=== PATIENT | female | born 1990 | race Caucasian/White ===

== ENCOUNTER 2020-10-09 02:26 | Outpatient (CLI) | payer BC, OTHER, SELFPAY ==
[2020-10-09 22:37] LABS: Thyroperoxidase Antibody 36 U/mL (<=60)
[2020-10-09 22:40] LABS: Thyroglobulin Antibody 296 U/mL (<=60)
[2020-10-11 10:37] LABS: Aldolase 4.4 U/L (<7.7)
== END 2020-10-09 02:46 ==
PROVIDERS: PCP Internal Medicine Rheumatology; Visit Provider Internal Medicine Rheumatology
DX: M79.18 Myalgia, other site (principal); R76.8 Other specified abnormal immunological findings in serum; R53.82 Chronic fatigue, unspecified; R79.89 Other specified abnormal findings of blood chemistry
CPT/HCPCS: 36415; 82085; 86376; 86800

== ENCOUNTER 2022-07-28 17:11 | Emergency (ER) | payer BC, MEDICARE, SELFPAY ==
[2022-07-28 17:22] VITALS: BP 112/78; PULSE 79; RESP 20; TEMP 37.1; O2SAT 97
--- NOTE | 2022-07-28 18:00 | DI.CT_ITS ---
Exam(s) CT ABDOMEN PELVIS WO EXAM: CT ABDOMEN PELVIS WO CLINICAL HISTORY: Right Flank pain, Hematuria, R/O Kidney stone. TECHNIQUE: Imaging Protocol: Axial computed tomography images with coronal and sagittal reformatted images were created and reviewed CONTRAST MATERIAL: Intravenous: none Oral: None COMPARISON: No exams were available for comparison FINDINGS: VISUALIZED LUNG BASES: No nodules nor pleural effusions evident. ABDOMEN: There is no ascites. LIVER: There are no obvious focal hepatic lesions evident of this noninfused study. GALLBLADDER/BILIARY: Gallbladder is surgically absent. CBD is not dilated. PANCREAS: No evidence of pancreatic mass nor dilatation of the pancreatic duct. SPLEEN: Spleen is not enlarged. No obvious intrasplenic lesions. ADRENALS: There are no significant adrenal masses. KIDNEYS:No cysts evident. No solid renal masses. No calculi nor hydronephrosis. . ABDOMINAL AORTA: Abdominal aorta is not enlarged. LYMPH NODES: There is no retroperitoneal nor paraaortic adenopathy. ABDOMINAL WALL: No evidence of significant anterior abdominal wall nor inguinal hernia. GI: Abundant fecal material is noted throughout the entire colon,. No evidence of small-bowel obstruction. PELVIS: LYMPH NODES: There is no intrapelvic nor inguinal adenopathy. GI: No evidence of appendicitis.No evidence of sigmoid diverticulitis. URINARY BLADDER: Moderately distended. Masses. No calculi. REPRODUCTIVE: Uterus and ovaries appear unremarkable-age appropriate. OSSEOUS: No significant osseous lesions. IMPRESSION: 1. Abundant fecal material noted throughout the colon and correlation any clinical history of constip ation recommended. No evidence of small-bowel obstruction. 2. Mildly distended urinary bladder noted. Does not contain obvious calculi nor masses. 3. RADIATION DOSE DELIVERED: Total DLP DATA REPOSITORY: All CT scans at this facility are submitted to the National Radiology Data Registry (NRDR) Dose Index Registry (DIR) with the [employer] ([employer]). RADIATION OPTIMIZATION: All CT scans at this facility use at least one of these dose optimization te chniques: automated exposure control; mA and/or kV adjustment per patient size (includes targeted exa ms where dose is matched to clinical indication); or iterative reconstruction.
--- NOTE | 2022-07-28 18:12 | ED.GENADUL_ITS ---
Discharge Plan Disposition Patient Disposition: HOME Condition: Stable Discharge Details Clinical Impression: Constipation, UTI (urinary tract infection) Primary Care Provider: [facility] Provider: Suyapa Chirinos Home Meds and New Rx's Prescriptions: Continued methocarbamol 500 mg Tablet 500 mg PO PRN PRN gabapentin 600 mg Tablet 600 mg PO TID metoprolol tartrate 50 mg Tablet 50 mg PO BID diazepam 10 mg Tablet 10 mg PO TID dicyclomine 10 mg Capsule 20 mg PO TID gabapentin 400 mg Tablet 400 mg PO TID Discharge Instructions Instructions: Constipation (ED), Urinary Tract Infection in Women (ED) Additional Instructions: You may try a fleet enema which you can obtain over the counter, your urine showed a possibly a UTI. You were given antibiotics here in the department for that which should treat it. However if your culture comes back and you need to be placed on a different antibiotic we will call you. I do feel that your pain is caused from the constipation. Follow up with primary care provider in 3-5 days. Return to ED sooner if any worsening or concerns. Increase oral fluids. Please take Tylenol or Ibuprofen with food every 4-6 hours as needed for pain and swelling. You may drink the rest of the magnesium citrate at home. Medical Decision Making 32-year-old female presents to the ER with chief complaint of right flank pain which radiates around to her right side of her abdomen which began Thursday. She was seen in urgent care prior to arrival and they referred her here. CBC shows no leukocytosis, CMP largely within normal limits BUN 10 creatinine 1.1 GFR 69, lipase within normal limits. I do suspect that patient's pain is being caused from constipation we will give a soapsuds enema, and get patient to relieve her bladder. Is a small hard balls after enema. 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 She does have a history of brain tumors, will give 2 mg of Valium here mag citrate half year and half at home. And will consider sending home a Fleet enema. Will give Fosphomycin 3 gm here for positive nitrites in urine. This text was generated using [employer] system, please disregard any oddities of phrase or misspellings. Imaging Data Radiologic Study: Imaging: CT Scan Radiologist's impression: IMPRESSION: 1. Large volume colonic stool distributed throughout the colon suggesting constipation. 2. Mildly excessive small bowel fluid content may indicate changes of stasis or ileus, versus mild gastroenteritis/developing diarrheal state. No evidence of bowel obstruction or perforation. 3. No hydronephrosis or hydroureter. No urolithiasis. Question slight right-sided periureteral stranding which may represent changes of a recently passed stone versus mild changes of UTI. 4. Moderately distended urinary bladder, estimated volume 550 mL. Thank you for allowing us to participate in the care of your patient Lab Data Lab results reviewed: Yes I reviewed the patient's lab results. Labs: 07/28/22 21:10 Urine - Reflex from Ua Urine Culture - Pending Laboratory Tests Range/Units 07/28/22 07/28/22 07/28/22 18:50 18:50 21:10 WBC (4.4-10.8) 10^3/uL 9.47 RBC (3.93-5.22) 10^6/uL 5.11 Hgb (11.2-15.7) g/dL 14.8 Hct (36.0-46.0) % 45.5 MCV (80-95) fL 89 MCH (27.0-33.0) pg 29.0 MCHC (32.0-36.0) % 32.5 RDW (11.7-14.6) % 12.6 Plt Count (130-400) 10^3/uL 282 MPV (8.0-11.0) fL 10.1 Immature Gran % 0.2 Neutrophils % 57.5 Lymphocytes % 32.5 Monocytes % 6.8 Eosinophils % 2.3 Basophils % 0.7 Nucleated RBC % (0.0-0.3) % 0.0 Absolute Neutrophils (1.2-6.7) 10^3/uL 5.44 Absolute Lymphocytes (1.2-3.4) 10^3/uL 3.08 Absolute Monocytes (0.1-0.8) 10^3/uL 0.64 Absolute Eosinophils (0.0-0.7) 10^3/uL 0.22 Absolute Basophils (0.0-0.2) 10^3/uL 0.07 Sodium (136-145) mmol/L 141 Potassium (3.5-5.1) mmol/L 4.7 Chloride (98-107) mmol/L 106 Carbon Dioxide (21.0-32.0) mmol/L 29.9 Anion Gap (3-11) mmol/L 5.1 BUN (7-18) mg/dL 10 Creatinine (0.55-1.02) mg/dL 1.1 H Est GFR (CKD-EPI 2020) (mL/min/1.73m2) 69.32 Glucose (74-106) mg/dL 94 Calcium (8.5-10.1) mg/dL 9.6 Magnesium (1.8-2.4) mg/dL 2.2 Total Bilirubin (0.2-1.0) mg/dL 0.4 AST (15-37) U/L 25 ALT (14-59) U/L 25 Alkaline Phosphatase (46-116) U/L 87 Total Protein (6.4-8.2) g/dL 8.5 H Albumin (3.4-5.0) g/dL 4.7 Lipase (73-393) U/L 79 Urine Color (Yellow) Yellow Urine Clarity (Clear) Clear Urine pH (5-8) 7.0 Ur Specific [place] (1.005-1.025) 1.015 Urine Protein (Negative) mg/dL Negative Urine Ketones (Negative) mg/dL Negative Urine Blood (Negative) Negative Urine Nitrite (Negative) Positive H Urine Bilirubin (Negative) Negative Urine Urobilinogen (Up TO 0.2) EU/dL 0.2 Ur Leukocyte Esterase (Negative) Negative Urine RBC (0-2) HPF 0-2 Urine WBC (0-5) HPF 3-5 Ur Epithelial Cells (Negative) HPF Few Urine Crystals (Negative) HPF Negative Urine Bacteria (Negative) HPF Few Urine Casts (Negative) LPF Negative Urine Mucus (Negative) Negative Ur Culture Indicated? Yes Urine Glucose (Negative) mg/dL Negative HPI General Mode of arrival: wheelchair . Date/Time Provider Initiated Documentation: 07/28/22 17:30 . Limitations to Documentation: no limitations and physical limitation . Information obtained by: patient, RN notes reviewed and old records reviewed . HPI Narrative: 32-year-old female presents to the ER with chief complaint of right flank pain which radiates around to her right side of her abdomen which began Thursday. She was seen in urgent care prior to arrival and they referred her here. They did obtain a urine sample and noted 3+ blood. Related Data Home Medications Medication Instructions Recorded Confirmed diazepam 10 mg tablet 10 mg PO TID 10/31/22 10/31/22 dicyclomine 10 mg capsule 20 mg PO TID 07/28/22 07/28/22 gabapentin 400 mg tablet 400 mg PO TID 07/28/22 07/28/22 gabapentin 600 mg tablet 600 mg PO TID 07/28/22 07/28/22 methocarbamol 500 mg tablet 500 mg PO PRN PRN 07/28/22 07/28/22 metoprolol tartrate 50 mg tablet 50 mg PO BID 07/28/22 07/28/22 Allergies Allergy/AdvReac Type Severity Reaction Status Date / Time aspirin Allergy Anaphylaxis Unverified 07/28/22 22:17 NSAIDS (Non-Steroidal Allergy Anaphylaxis Unverified 07/28/22 22:17 Anti-Inflamma Penicillins AdvReac Unverified 07/28/22 22:18 General Stated Complaint: Abd Prob ALIS: 3 Review of Systems All systems reviewed & are unremarkable except as noted in HPI and below Cardiovascular Cardiovascular: Denies chest pain and Denies dyspnea Respiratory Respiratory: Denies cough and Denies dyspnea Gastrointestinal Gastrointestinal: Reports abdominal pain, Denies hematochezia, Reports constipation, Reports nausea and Denies vomiting Genitourinary Genitourinary: Denies dysuria PFSH All Active Problems (Updated 07/28/22 @ 22:26 by Suyapa Chirinos NP) Constipation (Acute) UTI (urinary tract infection) (Acute) Social History Smoking/Tobacco Use Status: Never Smoking risk assessment performed?: Yes Alcohol Intake: never Drug use: Never Substance use type: does not use Do you feel safe at home: Yes Do you feel safe in your relationship?: Yes Exam Narrative Exam Narrative: Constitutional: Alert and oriented x3. Appears stated age. Normal body habitus. Head: Normocephalic, no trauma. Eyes: Pupils PERRL, Red reflex noted, EOM's intact. Eyelids symmetrical without lesions, discharge, or swelling. ENT: Bilateral TM's WNL, External ear normal to inspection, no mastoid TTP, swelling, or erythema, Nasal turbinates WNL, no nasal discharge. Normal dentition, Posterior pharynx WNL, no exudate. Chest: RRR, Normal S1, S2, distal pulses intact. Resp: Lungs clear to auscultation bilaterally, no wheezes, rales, or rhonchi. Abdomen: Generalized tenderness, appears slightly distended Musculoskeletal: Unable to assess gait. Skin: No suspicious rashes or lesions. Capillary refill less than 2 sec. Neurologic: Cranial nerves II-XII intact. Alert and oriented x 3. Motor: No deficits noted. Sensory: Intact bilaterally all 4 extremities. Hematologic/Lymphatic: No ecchymosis, no lymphadenopathy. Course Vital Signs Vital signs: Vital Signs Temperature 37.1 C 07/28/22 17:22 Pulse 79 07/28/22 17:22 Respiratory Rate 20 07/28/22 17:22 Blood Pressure 112/78 07/28/22 17:22 Pulse Oximetry 97 07/28/22 17:22 Temperature 37.1 C 07/28/22 17:22 Temperature Source Temporal Artery Scan 07/28/22 17:22 Pulse 79 07/28/22 17:22 Respiratory Rate 20 07/28/22 17:22 Blood Pressure 112/78 07/28/22 17:22 Blood Pressure Position Sitting 07/28/22 17:22 Pulse Oximetry 97 07/28/22 17:22 Oxygen Delivery Method Room Air 07/28/22 17:22 Oxygen Flow Rate 0 07/28/22 17:22 Pain Level 10 07/28/22 17:22
[2022-07-28 18:59] LABS: Abs Immature Grans 0.02 10^3/uL (0.0-0.06); Absolute Basophil Count 0.07 10^3/uL (0.0-0.2); Absolute Eosinophil Count 0.22 10^3/uL (0.0-0.7); Absolute Lymphocyte Count 3.08 10^3/uL (1.2-3.4); Absolute Monocyte Count 0.64 10^3/uL (0.1-0.8); Absolute Neutrophil Count 5.44 10^3/uL (1.2-6.7); Basophils % 0.7; Eosinophils % 2.3; HCT 45.5 % (36.0-46.0); HGB 14.8 g/dL (11.2-15.7); Immature Grans % 0.2; Lymphocytes % 32.5; MCHC 32.5 % (32.0-36.0); MCV 89 fL (80-95); MPV 10.1 fL (8.0-11.0); Monocytes % 6.8; Neutrophils % 57.5; Platelet Count 282 10^3/uL (130-400); RBC 5.11 10^6/uL (3.93-5.22); RDW 12.6 % (11.7-14.6); RDW-SD 41.4 fL; WBC 9.47 10^3/uL (4.4-10.8)
[2022-07-28] MEDS: MORPHine 10 MG/ML VIAL 2 MG IVP (19:01)
[2022-07-28] MEDS: Ondansetron O.D.T. 4 MG TABEF PO (19:02)
[2022-07-28 19:16] LABS: ALT 25 U/L (14-59); AST 25 U/L (15-37); Albumin 4.7 g/dL (3.4-5.0); Alkaline Phosphatase 87 U/L (46-116); Anion Gap 5.1 mmol/L (3-11); BUN 10 mg/dL (7-18); Bilirubin, Total 0.4 mg/dL (0.2-1.0); CO2 29.9 mmol/L (21.0-32.0); CREATININE 1.1 mg/dL (0.55-1.02); Calcium 9.6 mg/dL (8.5-10.1); Chloride 106 mmol/L (98-107); Estimated GFR 69.32 (mL/min/1.73m2); Glucose 94 mg/dL (74-106); Lipase 79 U/L (73-393); Magnesium 2.2 mg/dL (1.8-2.4); Potassium 4.7 mmol/L (3.5-5.1); Sodium 141 mmol/L (136-145); Total Protein 8.5 g/dL (6.4-8.2)
--- NOTE | 2022-07-28 19:56 | DI.VRAD_ITS ---
PROCEDURE INFORMATION: Exam: CT Abdomen And Pelvis Without Contrast Exam date and time: 07/28/2022 7:29 PM Age: 32 years old Clinical indication: Other: Right flank pain, hematuria, R/O kidney stone TECHNIQUE: Imaging protocol: Computed tomography of the abdomen and pelvis without contrast. Radiation optimization: All CT scans at this facility use at least one of these dose optimization techniques: automated exposure control; mA and/or kV adjustment per patient size (includes targeted exams where dose is matched to clinical indication); or iterative reconstruction. COMPARISON: No relevant prior studies available. FINDINGS: Lungs: Visualized lung bases are clear. Heart: Heart size normal. Mediastinal space: The visualized distal esophagus is largely contracted without gross abnormality. Liver: Normal contour. No mass lesions. No intrahepatic biliary ductal dilatation. Gallbladder and bile ducts: Prior cholecystectomy with expected mild postoperative dilatation of the common bile duct. Pancreas: Normal. No inflammatory changes or ductal dilation. Spleen: Normal. No splenomegaly. Adrenal glands: Normal. No adrenal mass. Kidneys and ureters: No hydronephrosis or hydroureter. No urinary tract stones are identified. Question slight periureteral stranding/wall thickening along the mid to distal right ureter might represent mild changes of a recently passed stone or possibly UTI. No evidence of pyelonephritis or abscess. Stomach and bowel: The stomach is unremarkable. Question mildly excessive fluid content in the mid and distal small bowel which could reflect mild changes of ileus or gastroenteritis/developing diarrheal state. No mai dilatation or transition point to suggest obstruction. Large volume colonic stool distributed throughout the colon suggesting constipation. Appendix: The appendix is normal in caliber and demonstrates no evidence of appendicitis. Intraperitoneal space: No free fluid or air. Vasculature: No acute process. No abdominal aortic aneurysm. Lymph nodes: No adenopathy. Urinary bladder: Moderate urinary bladder distension, estimated bladder volume 550 mL. No gross bladder abnormalities. Reproductive: Unremarkable as visualized. Bones/joints: No acute osseous abnormalities. Soft tissues: Unremarkable. IMPRESSION: 1. Large volume colonic stool distributed throughout the colon suggesting constipation. 2. Mildly excessive small bowel fluid content may indicate changes of stasis or ileus, versus mild gastroenteritis/developing diarrheal state. No evidence of bowel obstruction or perforation. 3. No hydronephrosis or hydroureter. No urolithiasis. Question slight right-sided periureteral stranding which may represent changes of a recently passed stone versus mild changes of UTI. 4. Moderately distended urinary bladder, estimated volume 550 mL. Dictated and Authenticated by: Valdemar Avina MD. Ordering:ARNAUD Dale MD
[2022-07-28 21:17] LABS: Bilirubin Negative (Negative); Blood Negative (Negative); Clarity Clear (Clear); Glucose Negative (Negative); Ketones Negative (Negative); Leukocyte Esterase Negative (Negative); Nitrite Positive (Negative); Specific Gravity 1.015 (1.005-1.025); Urobilinogen 0.2 EU/dL (Up TO 0.2)
[2022-07-28 21:24] LABS: Bacteria Few HPF (Negative); C & S Indicated? Yes; Casts Negative LPF (Negative); Crystals Negative HPF (Negative); Epithelial Cells Few HPF (Negative); Mucus Negative (Negative); RBC 0-2 HPF (0-2)
[2022-07-28] MEDS: diazePAM 2 MG TAB PO (22:16)
[2022-07-28] MEDS: Fosfomycin Tromethamine 3 GM PACKET PO (22:17)
[2022-07-28 22:36] VITALS: BP 118/38; PULSE 70; RESP 20; TEMP 37; O2SAT 97
== END 2022-07-28 22:40 | disposition home or self-care (01) ==
PROVIDERS: Emergency Provider Registered Nurse Emergency
DX: K59.00 Constipation, unspecified (principal); N39.0 Urinary tract infection, site not specified; R10.9 Unspecified abdominal pain; R31.9 Hematuria, unspecified
CPT/HCPCS: 80053; 83690; 96374; 99284; 74176; 81003; 81015; 83735; 85025; 87086; 99283; J2270; J3490